=== PATIENT | female | born 1940 | race Caucasian/White ===

== ENCOUNTER 2021-11-22 07:46 | Inpatient (IN) | payer OTHER ==
[~2021-11-22] VITALS: Ht 175.3 cm; Wt 81.6 kg
[2021-11-22 08:11] VITALS: BP_SYST 140
[2021-11-22] MEDS ORDERED: ACETAMINOPHEN 325 MG TABLET PO ONE (08:15)
[2021-11-22] MEDS ORDERED: ALBUTEROL SULFATE 0.083% 2.5 MG/3 ML VIAL.NEB INH ONE ×2 (08:15→10:15)
[2021-11-22 09:08] LABS: BASOPHILS # (AUTO) 0.1 K/uL (0.0-0.2); BASOPHILS % (AUTO) 1.1 % (0.0-2.0); EOSINOPHILS % (AUTO) 0.1 % (0.0-4.0); HEMATOCRIT 37.3 % (36-48); HEMOGLOBIN 12.5 g/dL (12.0-16.0); LYMPHOCYTES # (AUTO) 1.3 K/uL (1.0-5.5); LYMPHOCYTES % (AUTO) 16.8 % (20.5-51.5); MEAN CORPUSCULAR HEMOGLOBIN 30 pg (27-31); MEAN CORPUSCULAR HGB CONC 33 % (32-36); MEAN CORPUSCULAR VOLUME 90 fL (79.0-98.0); MONOCYTES # (AUTO) 1.3 K/uL (0.0-1.0); MONOCYTES % (AUTO) 16.6 % (1.7-9.3); NEUTROPHILS # (AUTO) 5.2 K/uL (1.8-7.7); NEUTROPHILS % (AUTO) 65.4 % (40.0-70.0); PLATELET COUNT (AUTO) 159 K/uL (130-430); RED BLOOD CELL COUNT(AUTO) 4.14 MIL/uL (4.2-6.2); RED CELL DISTRIBUTION WIDTH 13.7 % (9.0-15.0)
[2021-11-22 09:20] LABS: ANION GAP 8 (5-15); CALCIUM 8.2 mg/dL (8.4-11.0); CHLORIDE 97 mmol/L (98-107); CREATININE 1.01 mg/dL (0.55-1.30); GLUCOSE 103 mg/dL (70-99); POTASSIUM 3.6 mmol/L (3.5-5.1); SODIUM SERUM 131 mmol/L (136-145); UREA NITROGEN, BLOOD 12 mg/dL (8-21)
[2021-11-22 09:29] LABS: ALANINE AMINOTRANSFERASE 32 U/L (12-78); ALBUMIN 3.3 g/dL (3.4-4.8); ASPARTATE AMINOTRANSFERASE 25 U/L (10-37); TOTAL BILIRUBIN 0.5 mg/dL (0.0-1.0)
[2021-11-22 09:33] LABS: PROTHROMBIN TIME 10.5 SECS (9.5-12.5)
[2021-11-22] MEDS ORDERED: OSELTAMIVIR PHOSPHATE 75 MG CAPSULE PO ONE (10:00)
[2021-11-22 10:15] LABS: BILIRUBIN,URINE NEGATIVE (NEGATIVE); BLOOD, URINE 2+ (NEGATIVE); CLARITY/URINE CLEAR (CLEAR); COLOR,URINE YELLOW (YELLOW); GLUCOSE,URINE NEGATIVE (NEGATIVE); KETONES,URINE 2+ (NEGATIVE); LEUKOCYTE ESTERASE ,URINE NEGATIVE (NEGATIVE); NITRITE, URINE NEGATIVE (NEGATIVE); PH,URINE 5.5 (5.0-8.0); PROTEIN URINE 2+ (NEGATIVE); UROBILINOGEN,URINE 0.2 (0.2-1.0)
[2021-11-22] MEDS ORDERED: NACL 0.9% 1,000 ML IV ONE (10:15)
[2021-11-22] MEDS ORDERED: METHYLPREDNISOLONE SOD SUCC 40 MG/ML VIAL IVP ONE (10:15)
[2021-11-22 10:33] LABS: BACTERIA,URINE FEW /HPF (None Seen)
[2021-11-22 10:34] LABS: COARSE GRANULAR CASTS,URINE 0-10 /LPF (None Seen)
[2021-11-22] MEDS ORDERED: cefTRIAXone 1 GM in D5W 50 ML IV ONE (11:15)
[2021-11-22] MEDS ORDERED: NACL 0.9% 1,400 ML IV ONE (11:15)
[2021-11-22] MEDS ORDERED: methylPREDNISolone SOD SUCC/PF 62.5 MG/ML VIAL ONE (11:40)
[2021-11-22] MEDS ORDERED: HALOPERIDOL LACTATE 5 MG/ML VIAL IVP ONE (11:45)
[2021-11-22] MEDS ORDERED: cefTRIAXone 1 GM VIAL ONE (12:10)
[2021-11-22] MEDS ORDERED: LEVO112T2 PO (12:30)
[2021-11-22] MEDS ORDERED: LIP40 PO (12:30)
[2021-11-22] MEDS ORDERED: LORazepam 2 MG/ML VIAL IVP PRN (12:45)
[2021-11-22] MEDS ORDERED: levalbuterol HCL 0.63 MG/3 ML VIAL.NEB INH PRN (12:45)
[2021-11-22] MEDS ORDERED: METHYLPREDNISOLONE SOD SUCC 40 MG/ML VIAL IVP SCH (14:00)
[2021-11-22 17:30] VITALS: BP_SYST 123
[2021-11-22 18:43] VITALS: BP_SYST 125
[2021-11-22] MEDS ORDERED: OSELTAMIVIR PHOSPHATE 6 MG/1 ML, 60 ML SUSP PO SCH (21:00)
[2021-11-23] MEDS ORDERED: LEVOTHYROXINE SODIUM 0.112 MG TABLET PO SCH (07:00)
[2021-11-23] MEDS ORDERED: cefTRIAXone 1 GM IVPB PREMIX 50 ML IV SCH (09:00)
[2021-11-23] MEDS ORDERED: ATORVASTATIN 20 MG TABLET PO SCH (09:00)
== END 2021-11-22 18:00 | disposition left against medical advice (07) | DRG 871 ==
LOC: SED 07:46 → STU 10:07
PROVIDERS: ADMIT Internal Medicine; ATTEND Internal Medicine
DX: A41.9 Sepsis, unspecified organism (principal); J96.00 Acute respiratory failure, unspecified whether with hypoxia or hypercapnia; N39.0 Urinary tract infection, site not specified; J10.1 Influenza due to other identified influenza virus with other respiratory manifestations; Z20.822 Contact with and (suspected) exposure to COVID-19; Z79.890 Hormone replacement therapy; Z79.899 Other long term (current) drug therapy
CPT/HCPCS: 36415; 71045; 80053; 81000; 83605; 83880; 84443; 84484; 85025; 85610-TC; 85730-TC; 87040; 87086; 93005; 94640; 96361; 96365; 96375; 99285; G0378; G9035; J0696; J1030; J2930; J7030; J7060; J7613

== ENCOUNTER 2022-02-05 21:03 | Inpatient (IN) | payer OTHER ==
[~2022-02-05] VITALS: Ht 170.2 cm; Wt 76.2 kg
[~2022-02-05 21:03] MED LIST: LEVO112T2 PO; LIP40 PO
[2022-02-05 21:10] VITALS: BP_SYST 125
--- NOTE | 2022-02-05 21:10 | NUR ---
Patient to ER bed 7 to gown for evaluation. Side rails up. Report given to Cherrie SABILLON.
--- NOTE | 2022-02-05 21:28 | NUR ---
bedside llaobza=[id number]
--- NOTE | 2022-02-05 21:30 | NUR ---
Patient presents to ED from home with c/o chest discomfort. Patient denies pain stating 0/10 level at this time. Patient is accompanied by son who is at bedside. Patient A/Ox4, VSS, ambulatory, resp even and unlabored. Patient has hx of bipolar and thyroid. Patient's son states she has been a little forgetful x2 months. Nad noted at this time.
--- NOTE | 2022-02-05 21:40 | NUR ---
Lab at bedside
--- NOTE | 2022-02-05 21:43 | NUR ---
ANNIKA Garcia at bedside examining patient.
--- NOTE | 2022-02-05 21:44 | NUR ---
# 20 gauge angiocath placed to lfa. Use of asceptic technique. Opsite placed over site. Blood return noted. Blood for lab drawn from site. Flushed with 10 cc of normal saline. No evidence of infiltration noted. Patient tolerated well.
[2022-02-05 22:00] LABS: BASOPHILS # (AUTO) 0.1 K/uL (0.0-0.2); BASOPHILS % (AUTO) 1.4 % (0.0-2.0); EOSINOPHILS # (AUTO) 0.2 K/uL (0.0-0.4); EOSINOPHILS % (AUTO) 2.9 % (0.0-4.0); HEMATOCRIT 36.2 % (36-48); LYMPHOCYTES % (AUTO) 27.9 % (20.5-51.5); MEAN CORPUSCULAR VOLUME 91 fL (79.0-98.0); MONOCYTES # (AUTO) 0.8 K/uL (0.0-1.0); MONOCYTES % (AUTO) 11.6 % (1.7-9.3); NEUTROPHILS # (AUTO) 4.1 K/uL (1.8-7.7); NEUTROPHILS % (AUTO) 56.2 % (40.0-70.0); PLATELET COUNT (AUTO) 199 K/uL (130-430); RED BLOOD CELL COUNT(AUTO) 3.99 MIL/uL (4.2-6.2); RED CELL DISTRIBUTION WIDTH 15.5 % (9.0-15.0); WHITE BLOOD COUNT (AUTO) 7.3 K/uL (4.8-10.8)
[2022-02-05 22:02] LABS: ANION GAP 11 (5-15); CALCIUM 9.6 mg/dL (8.4-11.0); CHLORIDE 105 mmol/L (98-107); CREATININE 1.18 mg/dL (0.55-1.30); GLUCOSE 96 mg/dL (70-99); POTASSIUM 3.6 mmol/L (3.5-5.1); SODIUM SERUM 141 mmol/L (136-145); UREA NITROGEN, BLOOD 25 mg/dL (8-21)
[2022-02-05 22:10] LABS: ALANINE AMINOTRANSFERASE 25 U/L (12-78); ALBUMIN 3.8 g/dL (3.4-4.8); ASPARTATE AMINOTRANSFERASE 17 U/L (10-37); TOTAL BILIRUBIN 0.7 mg/dL (0.0-1.0)
--- NOTE | 2022-02-05 22:20 | NUR ---
Covid swab done and sent to lab
[2022-02-05] MEDS ORDERED: ACETAMINOPHEN 500 MG TABLET PO PRN (23:00)
[2022-02-05] MEDS ORDERED: cefTRIAXone 1 GM IVPB PREMIX 50 ML IV ONE ×2 (23:00)
--- NOTE | 2022-02-05 23:00 | NUR ---
Admit bed requested Patient will be admitted to care of . Admitted to MED SURG unit. Diagnosis UTI Inpatient (Yes or No) Y Observation (Yes or No) N Orientation concerns or request close to nursing station (Yes or No) Y Covid Status NEGATIVE On vent or bipap N Isolation requirements N Needs a sitter N From Home (Yes or if No enter name of facility) HOME Requires Dialysis (Yes or No) N Med Rec Completed (Yes of No) YES
[2022-02-05] MEDS: D5/0.45 NS 1,000 ML IV SCH (23:28)
[2022-02-05 23:29] LABS: BILIRUBIN,URINE 1+ (NEGATIVE); BLOOD, URINE 2+ (NEGATIVE); CLARITY/URINE SL CLOUDY (CLEAR); COLOR,URINE YELLOW (YELLOW); GLUCOSE,URINE NEGATIVE (NEGATIVE); KETONES,URINE TRACE (NEGATIVE); LEUKOCYTE ESTERASE ,URINE 2+ (NEGATIVE); NITRITE, URINE NEGATIVE (NEGATIVE); PROTEIN URINE TRACE (NEGATIVE); UROBILINOGEN,URINE 0.2 (0.2-1.0)
[2022-02-05 23:37] LABS: WBC,URINE 80-100 /HPF (0-3)
[2022-02-05 23:38] LABS: BACTERIA,URINE MODERATE /HPF (None Seen); MUCUS,URINE 1+ /LPF (None Seen)
--- NOTE | 2022-02-06 00:05 | NUR ---
Lab at bedside.
[2022-02-06] MEDS ORDERED: ESCI5TAB PO (00:31)
--- NOTE | 2022-02-06 00:37 | NUR ---
Patient will be admitted to care of Dr Adan. Admitted to MED SURG unit. Will go to room 132B. Belongings list completed. Complete and up to date summary report printed. SBAR report given to RIDGE Galan at bedside with opportunity for questions. Patient in stable condition at this time.
[2022-02-06 01:00] VITALS: BP_SYST 149
--- NOTE | 2022-02-06 01:26 | NUR ---
ADMISSION NOTE Received patient from ER via gurney. Patient admitted with diagnosis of UTI. Patient is awake, alert, oriented X 3. Patient oriented to hospital room, call light, toileting, pain management and safety-teach back done. Patient informed that their room number is 132B. Personal belongings checked and Belongings List documented. Call light within reach.
--- NOTE | 2022-02-06 06:58 | NUR ---
Closing note Pt is calm but anxious to get out of the room. Reoriented pt that she is in the hospital. Refusing IVF and wants the IV taken out. Explained the need for the IV and stated that she "can get hooked up until the doctor comes". Will monitor until endorsed to day shift.
[2022-02-06 12:05] VITALS: BP_SYST 121
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
--- NOTE | 2022-02-06 13:38 | NUR ---
INSTRUMENT MECHANIC ACSW Sharla responded to a request for Social Service support from patient's son Rebel Bruno . RIDGE Gongora informed this ACSW that Rebel was requesting to speak with [employer] Manager. ACSW attempted to meet at bedside, but he had already left. ACSW also attempted phone contact, but no answer and there was not a message option. ACSW will make complete another attempt at a later time, and continue to be available as needed Addendum: 02/06/22 at 1440 by Sharla White MSW ACSW attempted another phone call to patient's son Rebel. Voicemail was left requesting call back
[2022-02-06] MEDS ORDERED: ACETAMINOPHEN 325 MG TABLET PO PRN (15:15)
[2022-02-06] MEDS ORDERED: LEVOTHYROXINE SODIUM 0.112 MG TABLET PO ONE (15:45)
[2022-02-06] MEDS ORDERED: CITALOPRAM HYDROBROMIDE 20 MG TABLET PO ONE (15:45)
[2022-02-06] MEDS ORDERED: ATORVASTATIN 20 MG TABLET PO ONE (15:45)
[2022-02-06 16:07] VITALS: BP_SYST 114
[2022-02-06] MEDS: D5/0.45 NS 1,000 ML IV SCH (21:00)
[2022-02-06] MEDS: DONEPEZIL HCL 5 MG TABLET (ARICEPT) PO SCH (22:27)
[2022-02-06] MEDS: ENOXAPARIN SODIUM 40 MG/0.4 ML SYRINGE SUBCUT SCH (22:27)
[2022-02-06] MEDS: cefTRIAXone 1 GM IVPB PREMIX 50 ML IV SCH (23:16)
[2022-02-07 01:31] VITALS: BP_SYST 120
[2022-02-07 05:22] VITALS: BP_SYST 140
--- NOTE | 2022-02-07 07:15 | NUR ---
receive the pt from the pneumatic jack operator Ashvin in a stable condition . AoX4 with confusion . no episode of shortness of breath . no complain of pain . will continue to monitor
[2022-02-07 08:00] VITALS: BP_SYST 145
[2022-02-07] MEDS: CITALOPRAM HYDROBROMIDE 20 MG TABLET PO SCH (09:03)
[2022-02-07] MEDS: LEVOTHYROXINE SODIUM 0.112 MG TABLET PO SCH (09:03)
[2022-02-07] MEDS: D5/0.45 NS 1,000 ML IV SCH (09:11)
[2022-02-07] MEDS: ATORVASTATIN 20 MG TABLET PO SCH (09:14)
--- NOTE | 2022-02-07 10:05 | NUR ---
CLEANER LABORATORY EQUIPMENT ACSW Sharla met with patient's son Rebel at bedside. ACSW provided the following documents and resources; - Letter depicting patient's admission date - [facility] Information Packet - SS paper application - Senior Resources Packet - Meals on Wheels info - Assisted Living Locaters card - Lifestyles Booklet - [facility] Flyer - Adult Day Center Resource Packet ACSW will continue to be available as needed
--- NOTE | 2022-02-07 10:20 | NUR ---
the son Rebel came and visited the mother . requested for a call from the doctor for return .
[2022-02-07 20:00] VITALS: BP_SYST 126; BP_SYST 129
[2022-02-07] MEDS: cefTRIAXone 1 GM IVPB PREMIX 50 ML IV SCH (20:18)
[2022-02-07] MEDS: ENOXAPARIN SODIUM 40 MG/0.4 ML SYRINGE SUBCUT SCH (20:18)
[2022-02-07] MEDS: DONEPEZIL HCL 5 MG TABLET (ARICEPT) PO SCH (20:19)
--- NOTE | 2022-02-07 21:19 | NUR ---
Patient in bed. alarm set for safety. No acute distress noted. Turned repositioned q2. Will continue to monitor. Prn given for [place].
--- NOTE | 2022-02-07 22:55 | NUR ---
Patient's son here inquiring about the patient's discharge plan. Son stated, he was told by Case Management patient would be discharged today. Charge nurse explained to the son that patient has antibiotics to take for her UTI diagnosis. This nurse spoke to Dr. Adan. stated, we are waiting for the culture to come back on the patient's urine. Son made aware of plan. Charge nurse reinserting IV site. Will continue to monitor.
[2022-02-08] VITALS: BP_SYST 131
[2022-02-08] MEDS: D5/0.45 NS 1,000 ML IV SCH ×2 (01:36→17:15)
--- NOTE | 2022-02-08 03:50 | NUR ---
Patient pulled her IV out again. Will endorse to a.m. shift nurse.
[2022-02-08] MEDS: LEVOTHYROXINE SODIUM 0.112 MG TABLET PO SCH (04:44)
--- NOTE | 2022-02-08 07:14 | NUR ---
receive the pt from the night court magistrate RN in stable condition . no sigh and symptoms of shortness of breath . no complain of pain . will continue to monitor
[2022-02-08 07:33] LABS: BASOPHILS % (AUTO) 0.7 % (0.0-2.0); EOSINOPHILS # (AUTO) 0.2 K/uL (0.0-0.4); EOSINOPHILS % (AUTO) 3.7 % (0.0-4.0); HEMATOCRIT 34.9 % (36-48); LYMPHOCYTES # (AUTO) 1.8 K/uL (1.0-5.5); LYMPHOCYTES % (AUTO) 32.7 % (20.5-51.5); MEAN CORPUSCULAR VOLUME 92 fL (79.0-98.0); MONOCYTES # (AUTO) 0.8 K/uL (0.0-1.0); MONOCYTES % (AUTO) 14.7 % (1.7-9.3); NEUTROPHILS # (AUTO) 2.6 K/uL (1.8-7.7); NEUTROPHILS % (AUTO) 48.2 % (40.0-70.0); PLATELET COUNT (AUTO) 151 K/uL (130-430); RED BLOOD CELL COUNT(AUTO) 3.81 MIL/uL (4.2-6.2); RED CELL DISTRIBUTION WIDTH 15.3 % (9.0-15.0); WHITE BLOOD COUNT (AUTO) 5.4 K/uL (4.8-10.8)
[2022-02-08 08:13] LABS: ANION GAP 10 (5-15); CHLORIDE 107 mmol/L (98-107); GLUCOSE 89 mg/dL (70-99); POTASSIUM 3.5 mmol/L (3.5-5.1); SODIUM SERUM 142 mmol/L (136-145); UREA NITROGEN, BLOOD 18 mg/dL (8-21)
--- NOTE | 2022-02-08 08:30 | NUR ---
the son arrive . informed us that he would like to discharge the pt today
[2022-02-08] MEDS: CITALOPRAM HYDROBROMIDE 20 MG TABLET PO SCH (09:25)
[2022-02-08] MEDS: ATORVASTATIN 20 MG TABLET PO SCH (09:25)
--- NOTE | 2022-02-08 12:57 | NUR ---
still waiting for MD Ferguson for discharge orders
--- NOTE | 2022-02-08 16:00 | NUR ---
got an order for discharge home from MD Adan . prepare the discharge papers for the pt including prescription from the DR to be given to the shift supervisor RN for the pt upon discharge
[2022-02-08 16:02] VITALS: BP_SYST 126
--- NOTE | 2022-02-08 17:30 | NUR ---
Dietitian Recommendations * Continue mechanical soft diet LP, MS, RD Please refer to Nutrition Assessment for details.
--- NOTE | 2022-02-08 18:24 | NUR ---
will endorse to spragger RN for continuity of care
--- NOTE | 2022-02-08 20:05 | NUR ---
Patient discharge to home with all belongings. Accompanied by Son Rebel. Ambulatory on a private car. Health teachings given. supervisor welding equipment repairer prescription medicine at the preferred pharmacy. Call for appointment with PCP in a week.
== END 2022-02-08 23:10 | disposition home or self-care (01) | DRG 689 ==
LOC: SED 21:03 → SMU 22:53
PROVIDERS: ADMIT Family Medicine; ATTEND Family Medicine
DX: N39.0 Urinary tract infection, site not specified (principal); G93.41 Metabolic encephalopathy; J45.909 Unspecified asthma, uncomplicated; E03.9 Hypothyroidism, unspecified; E78.5 Hyperlipidemia, unspecified; Z20.822 Contact with and (suspected) exposure to COVID-19; Z79.899 Other long term (current) drug therapy; R62.7 Adult failure to thrive; Z68.26 Body mass index [BMI] 26.0-26.9, adult
CPT/HCPCS: 36415; 71045; 80048; 80053; 81000; 82962; 83605; 83735; 83880; 84484; 85025; 85379; 87040; 87086; 93005; 96365; 99285; J0696; J1650